=== PATIENT | female | born 1985 | race Caucasian/White ===

== ENCOUNTER → 2022-02-09 12:04 | Outpatient (CLI) | payer OTHER, SELFPAY ==
[2022-02-10 00:06] LABS: Urine N gonorrhoeae NOT DETECTED
[2022-02-10 00:08] LABS: Urine Chlamydia NOT DETECTED
== END ==
PROVIDERS: Visit Provider Obstetrics & Gynecology
DX: Z34.81 Encounter for supervision of other normal pregnancy, first trimester (principal); Z11.3 Encounter for screening for infections with a predominantly sexual mode of transmission; Z11.8 Encounter for screening for other infectious and parasitic diseases; Z3A.11 11 weeks gestation of pregnancy
CPT/HCPCS: 87491; 87591

== ENCOUNTER → 2022-02-09 12:44 | Outpatient (CLI) | payer OTHER, SELFPAY ==
[2022-02-09 13:48] LABS: Add Manual Diff / Slide Review NO; Basophils Absolute Auto 0 /uL (0-100); Basophils Percent Auto 0.7 % (0-2); Eosinophils Absolute Auto 100 /uL (0-450); Eosinophils Percent Auto 0.8 % (2-4); Hematocrit 37.1 % (36-46); Lymphocytes Absolute Auto 1800 /uL (1100-4500); Lymphocytes Percent Auto 29.1 % (25-40); Mean Corpuscular Hemoglobin 31.6 PG (26-34); Mean Corpuscular Volume 90.2 fL (80-100); Monocytes Absolute Auto 500 /uL (0-900); Monocytes Percent Auto 7.7 % (3-14); Neutrophils Absolute Auto 3800 /uL (1500-7000); Neutrophils Percent Auto 61.7 % (50-75); Platelet Count 309 X10^3/uL (150-400); Red Blood Cell Count 4.11 X10^6/uL (4.0-5.2); Red Cell Distribution Width 14.3 % (11.6-14.8); White Blood Cell Count 6.1 X10^3/uL (4.5-11.0)
[2022-02-09 14:05] LABS: Appearance Urine UA CLEAR; Bilirubin Urine UA NEGATIVE (NEGATIVE); Color Urine UA YELLOW; Glucose Urine UA NEGATIVE (Negative); Ketones Urine UA NEGATIVE (NEGATIVE); Leukocyte Esterase Urine UA NEGATIVE (NEGATIVE); Nitrite Urine UA NEGATIVE (Negative); Occult Blood Urine UA TRACE-LYSED (Negative); Protein Urine UA NEGATIVE (Negative); Urobilinogen Urine UA 0.2 E.U./dL (0.2)
[2022-02-10 05:02] LABS: HSV 2 IGG AB < 0.91 index (0.00-0.90); HSV1IGG < 0.91 index (0.00-0.90)
[2022-02-10 07:39] LABS: Varicella IgG Antibody 1462 index (Immune >165)
[2022-02-10 08:24] LABS: RPR Screen Non Reactive (Non Reactive)
[2022-02-10 16:18] LABS: Hepatitis B Surface Antigen NEGATIVE s/c (NEGATIVE); Rubella Antibody IgG 30.8 IU/mL (>15)
[2022-02-10 16:38] LABS: HIV 1 & 2 Ab/Ag 4th Gen Combo NEGATIVE (NEGATIVE); Hep C Virus Ab w/Reflex Quant NEGATIVE s/c (NEGATIVE)
== END ==
PROVIDERS: Referring Provider Obstetrics & Gynecology; Visit Provider Obstetrics & Gynecology
DX: O09.521 Supervision of elderly multigravida, first trimester (principal); Z34.81 Encounter for supervision of other normal pregnancy, first trimester; Z20.828 Contact with and (suspected) exposure to other viral communicable diseases; Z11.3 Encounter for screening for infections with a predominantly sexual mode of transmission; Z11.8 Encounter for screening for other infectious and parasitic diseases; Z3A.11 11 weeks gestation of pregnancy
CPT/HCPCS: 36415; 80055; 81003; 86695; 86696; 86787; 86803; 86850; 86900; 86901; 87086; 87389; 87491; 87591

== ENCOUNTER → 2022-04-15 10:44 | Outpatient (CLI) | payer OTHER, SELFPAY ==
--- NOTE | 2022-04-15 10:45 | DI.US.S_ITS ---
PROCEDURE: US OB >= 14 WEEKS FETUS INDICATIONS: anatomy scan OUTSIDE/PRIOR DATING DATA: Last menstrual period (LMP): 11/25/2021 LMP-based estimated date of delivery (JOHANA): 09/01/2022 First dating scan (date and location): 02/09/2022 Estimated date of delivery (JOHANA) from first dating scan: 09/01/2022 TECHNIQUE: Real-time scanning was performed of the fetus, with image documentation and biometric measurements. Endovaginal scanning: Not performed COMPARISON: 02/09/2022 FINDINGS: General: A single living intrauterine gestation is present. Presentation: Transverse distal left Placenta: Posterior, without previa Amniotic fluid index: 19.7 heart rate: 143 beats per minute Maternal cervical canal: 3.2 cm biometrics: Biparietal diameter: 5.1 cm Head circumference: 18.8 cm Abdominal circumference: 16.4 cm Femur length: 3.5 cm Clinically estimated gestational age: 20 weeks and 1 day Composite gestational age from present scan: 21 weeks and 2 days Estimated weight and percentile: 414 g, at the 96 percentile. Anatomic survey: Neuro: Ventricles are non-dilated at less than 10 mm. Cisterna magna is normal at 3-11 mm. Cerebellum is normal in size and morphology. Nuchal skin fold: Normal at less than 6 mm between 14-21 weeks gestational age. Face: Nose and lips are unremarkable. The mandible is not well seen on profile view. Nasal bone is present. However on facial view, the mandible appears normal. Spine: No evidence for spina bifida. Heart: 4-chambered heart is present, with normal ventricular outflow tracts. Diaphragm: Diaphragm is intact. Stomach: Left-sided stomach is present. Kidneys: No hydronephrosis. Normal is less than 5 mm in 2nd trimester, less than 7 mm in 3rd trimester. Cord: 3-vessel cord has orthotopic insertion. Bladder: Normal in size. Extremities: All 4 extremities identified. IMPRESSION: Intrauterine gestation at 20 weeks and 1 day. Biometry is at the upper limit of concordance, measuring 21 weeks and 2 days and fetus is slightly large for gestational age with EFW at the 96 percentile. Normal and complete anatomic survey. We strive to produce accurate, complete, and clear reports of imaging services. To assist us in improving patient care, this report was composed using standard report templates and voice recognition software. Therefore, it may contain abnormal punctuation, insertions and/or omissions. Occasional wrong-word or sound-alike substitutions may occur. Though we review the report and make efforts to correct it, we do recommend that the report be read carefully in proper context to recognize any text inaccuracies. Dictated by: Celio Ojeda M.D. on 04/15/2022 at 14:22 Approved by: Celio Ojeda M.D. on 04/15/2022 at 14:31
== END ==
PROVIDERS: Referring Provider Obstetrics & Gynecology; Visit Provider Obstetrics & Gynecology
DX: Z34.82 Encounter for supervision of other normal pregnancy, second trimester (principal); Z3A.21 21 weeks gestation of pregnancy
CPT/HCPCS: 76811